=== PATIENT | female | born 1995 | race Caucasian/White ===

== ENCOUNTER 2016-12-15 10:10 | Emergency (ER) | payer OTHER ==
[2016-12-15 11:22] VITALS: BP 120/65
--- NOTE | 2016-12-15 12:15 | UC ---
Throat Pain/Nasal Gaurang HPI - HPI Summary HPI Summary: pt presents with c/o sore throat, nasal congestion, cough "loss of voice" X 2 days. Pt denies fever chills, - History of Current Complaint Chief Complaint: UCRespiratory Stated Complaint: SORE THROAT Time Seen by Provider: 12/15/16 11:52 Hx Obtained From: Patient Hx Last Menstrual Period: 12/10/16 ?: No Onset/Duration: Gradual Onset, Lasting Days Severity: Mild Cough: Nonproductive Associated Signs & Symptoms: Positive: Dysphagia Related History: Seasonal Allergies - Allergies/Home Medications Allergies/Adverse Reactions: Allergies Allergy/AdvReac Type Severity Reaction Status Date / Time Adhesive Tape Allergy Intermediate Rash Verified 12/15/16 11:22 Cephalexin [From Keflex] Allergy Intermediate Hives Verified 12/15/16 11:22 Ondansetron [From Zofran] Allergy Mild Rash Verified 12/15/16 11:23 Morphine Allergy respiratory Verified 12/15/16 11:22 PMH/Surg Hx/FS Hx/Imm Hx Previously Healthy: Yes Other History Of: Negative For: HIV, Hepatitis B, Hepatitis C, Anticoagulant Therapy - Surgical History Surgical History: Yes Surgery Procedure, Year, and Place: back surgery for scoliosis/has [place]. ear tubes - Family History Known Family History: Positive: Hypertension Negative: Cardiac Disease - Social History Alcohol Use: None Substance Use Type: None Smoking Status (MU): Never Smoked Tobacco - Immunization History Most Recent Influenza Vaccination: none Review of Systems Constitutional: Negative Skin: Negative Eyes: Negative ENT: Sore Throat, Other - nasal congestion Respiratory: Cough Cardiovascular: Negative Gastrointestinal: Negative Genitourinary: Negative Motor: Negative Neurovascular: Negative Musculoskeletal: Negative Neurological: Negative Psychological: Negative All Other Systems Reviewed And Are Negative: Yes Physical Exam Triage Information Reviewed: Yes Appearance: Well-Appearing Vital Signs: Initial Vital Signs Temp 97.6 F 12/15/16 11:17 Pulse 68 12/15/16 11:17 Resp 14 12/15/16 11:17 BP 120/65 12/15/16 11:17 Pulse Ox 100 12/15/16 11:17 Vital Signs Reviewed: Yes Eye Exam: Normal ENT Exam: Other ENT: Positive: Nasal congestion, Other: - cerumen bialteral ears canals Neck exam: Normal Respiratory Exam: Normal Cardiovascular Exam: Normal Musculoskeletal Exam: Normal Neurological Exam: Normal Psychological Exam: Normal Skin Exam: Normal Throat Pain/Nasal Course/Dx - Differential Dx/Diagnosis Differential Diagnosis/HQI/PQRI: Laryngitis, URI Provider Diagnoses: laryngitis. allergies Discharge - Discharge Plan Condition: Stable Disposition: HOME Prescriptions: Fexofenadine-Pseudoephedrine [Karli-D 24 Hour Allergy] 1 tab PO DAILY #10 tab predniSONE TAB* [Deltasone TAB*] 20 mg PO DAILY #4 tab Patient Education Materials: Laryngitis (ED) Referrals: Carla Levi MD [Primary Care Provider] - If Needed
== END 2016-12-15 12:44 | disposition home or self-care (01) ==
LOC: UCCORT 10:10
DX: J04.0 Acute laryngitis (principal); H61.23 Impacted cerumen, bilateral; J30.2 Other seasonal allergic rhinitis; Z88.1 Allergy status to other antibiotic agents; Z88.5 Allergy status to narcotic agent; Z91.048 Other nonmedicinal substance allergy status
CPT/HCPCS: 87651; 99212; G0463

== ENCOUNTER 2019-07-07 14:28 | Emergency (ER) | payer OTHER ==
[2019-07-07 15:07] VITALS: BP 118/68
--- NOTE | 2019-07-07 15:30 | UC ---
Throat Pain/Nasal Gaurang HPI - HPI Summary HPI Summary: 20-year-old female presents with complaints of 2 days of sore throat and hoarse voice. Associated with occasional dry nonproductive cough. States chest is a little sore with coughing. Denies fever, chills, ear pain, nasal congestion, runny nose, dysphagia, shortness of breath, abdominal pain, nausea, vomiting. - History of Current Complaint Chief Complaint: UCGeneralIllness Stated Complaint: SORE THROAT Time Seen by Provider: 07/07/19 15:17 Hx Obtained From: Patient Hx Last Menstrual Period: 12/10/16 Pain Intensity: 5 - Allergies/Home Medications Allergies/Adverse Reactions: Allergies Allergy/AdvReac Type Severity Reaction Status Date / Time Adhesive Tape Allergy Intermediate Rash Verified 12/15/16 11:22 cephalexin [From Keflex] Allergy Hives Verified 07/07/19 15:07 morphine Allergy Difficulty Verified 07/07/19 15:07 Breathing ondansetron [From Zofran] Allergy Rash Verified 07/07/19 15:07 Home Medications: Home Medications NK [No Home Medications Reported] 07/07/19 [History Confirmed 07/07/19] PMH/Surg Hx/FS Hx/Imm Hx Previously Healthy: Yes - Denies significant PMH Other History Of: Negative For: HIV, Hepatitis B, Hepatitis C, Anticoagulant Therapy - Surgical History Surgical History: Yes Surgery Procedure, Year, and Place: back surgery for scoliosis/has [place]. ear tubes - Family History Known Family History: Positive: Hypertension - Social History Occupation: Employed Full-time Lives: Alone Alcohol Use: None Substance Use Type: None Smoking Status (MU): Never Smoked Tobacco - Immunization History Most Recent Influenza Vaccination: none Review of Systems All Other Systems Reviewed And Are Negative: Yes Constitutional: Negative: Fever, Chills Skin: Negative: Rash Eyes: Negative: Drainage, Eye Redness ENT: Positive: Sore Throat. Negative: Ear Ache, Nasal Discharge, Sinus Congestion, Sinus Pain/Tenderness Respiratory: Positive: Cough. Negative: Shortness Of Breath Cardiovascular: Negative: Chest Pain Gastrointestinal: Negative: Abdominal Pain, Vomiting, Nausea Genitourinary: Positive: Negative Musculoskeletal: Positive: Negative Neurological: Positive: Negative Is Patient Immunocompromised?: No Physical Exam - Summary Physical Exam Summary: GENERAL APPEARANCE: Well developed, well nourished, alert and cooperative, and appears to be in no acute distress. EYES: Conjunctiva clear. No drainage. EARS: External auditory canals and tympanic membranes clear, hearing grossly intact. NOSE: Mild nasal congestion. No nasal discharge. THROAT: Mild pharyngeal erythema. No tonsilar inflammation, swelling, exudate, or lesions. Uvula midline. Hoarse voice. NECK: Neck supple, non-tender without lymphadenopathy. CARDIAC: Normal S1 and S2. No S3, S4 or murmurs. Rhythm is regular. There is no peripheral edema, cyanosis or pallor. Extremities are warm and well perfused. Capillary refill is less than 2 seconds. Peripheral pulses intact. LUNGS: Clear to auscultation without rales, rhonchi, wheezing or diminished breath sounds. ABDOMEN: Positive bowel sounds. Soft, nondistended, nontender. No guarding or rebound. No masses or hepatosplenomegally. MUSKULOSKELETAL: ROM intact to all extremities. No joint erythema or tenderness. Normal muscular development. Normal gait. SKIN: Skin normal color, texture and turgor with no lesions or eruptions. Triage Information Reviewed: Yes Vital Signs: Initial Vital Signs Temp 97.9 F 07/07/19 15:02 Pulse 70 07/07/19 15:02 Resp 18 07/07/19 15:02 BP 118/68 07/07/19 15:02 Pulse Ox 100 07/07/19 15:02 Vital Signs Reviewed: Yes Throat Pain/Nasal Course/Dx - Course Course Of Treatment: 20-year-old female presents with complaints of 2 days of sore throat and hoarse voice. Associated with occasional dry nonproductive cough. States chest is a little sore with coughing. Denies fever, chills, ear pain, nasal congestion, runny nose, dysphagia, shortness of breath, abdominal pain, nausea, vomiting. Afebrile. Vital signs stable. Patient has some mild nasal congestion, mild pharyngeal erythema without tonsillar swelling or exudate, no cervical lymphadenopathy, clear bilateral breath sounds, and otherwise unremarkable exam. Rapid strep test was negative. Reviewed results with the patient. Recommending symptomatic treatment for viral pharyngitis. Patient is to follow- up with her primary care provider in 3-5 days if symptoms are not improving. Anticipatory guidance and warning symptoms are reviewed with the patient. Verbalizes understanding and agrees with plan of care. - Differential Dx/Diagnosis Differential Diagnosis/HQI/PQRI: Mononucleosis, Peritonsillar Abscess, Pharyngitis, Tonsillitis, URI Provider Diagnosis: Acute viral pharyngitis Discharge ED - Sign-Out/Discharge Documenting (check all that apply): Patient Departure All imaging exams completed and their final reports reviewed: No Studies - Discharge Plan Condition: Stable Disposition: HOME Patient Education Materials: Pharyngitis (ED) Referrals: Carla Levi MD [Primary Care Provider] - 3 Days (If no improvement in symptoms.) Additional Instructions: Your rapid strep test in the clinic today was negative. Your symptoms are likely from a viral infection. Viral infections do not respond to antibiotics and are limited to the treatment of symptoms. Viral infections typically run their course in 7-10 days. Drink plenty of fluids to avoid dehydration especially if you are running any fever. Use salt water gargles several times a day. Take over the counter acetaminophen (Tylenol) or ibuprofen (Advil, Motrin) according to directions as needed for pain or fever. You may also use Chloraseptic spray or Cepacol lonzenges according to directions which contain a numbing medication and can provide some temporary relief from your sore throat. Return here or follow up with your primary care provider in 3-5 days if symptoms persist. Seek immediate medical attention in the emergency room if you have fever greater than 100.5 F despite taking acetaminophen or ibuprofen, are unable to swallow or develop drooling, are unable to open your mouth fully, are unable to eat or drink, have pain that is not relieved with over the counter pain medication, or have any difficulty breathing. - Billing Disposition and Condition Condition: STABLE Disposition: Home
== END 2019-07-07 15:47 | disposition home or self-care (01) ==
LOC: UCCORT 14:28
DX: J02.9 Acute pharyngitis, unspecified (principal); R09.81 Nasal congestion; Z88.5 Allergy status to narcotic agent; Z88.8 Allergy status to other drugs, medicaments and biological substances; Z88.1 Allergy status to other antibiotic agents; Z91.09 Other allergy status, other than to drugs and biological substances
CPT/HCPCS: 87651; 99211; G0463